=== PATIENT | female | born 1975 ===

== ENCOUNTER 2025-10-22 06:49 | Outpatient (CLI) | payer OTHER ==
[~2025-10-22 06:49] MED LIST: N
[2025-10-22 07:39] LABS: BASO % 0.6 % (0.1-1.2); EOS # 0.29 (0.04-0.54); EOS % 4.2 % (0.7-7.0); LYMPH # 1.95 (1.18-3.74); LYMPH % 28.5 % (19.3-53.1); MEAN PLATELET VOLUME 9.60 fl (9.4-12.4); MONO # 0.60 (0.24-0.82); MONO % 8.8 % (4.7-12.5); NEUT # 3.94 (1.56-6.13); NEUT % 57.6 % (34.0-71.1); RED CELL DISTRIBUTION WIDTH 13.5 % (11.6-14.4)
[2025-10-22 08:42] LABS: BUN CREA RATIO 30.0 (7.0-25.0); CREATININE SERUM 0.67 mg/dL (0.55-1.02); GFR 92.43; GLUCOSE FASTING 92.0 mg/dL (65-100); OSMOLALITY SERUM 291.0 MOSM/KG (275-295)
== END 2025-10-22 06:56 | disposition home or self-care (01) ==
LOC: LAB 06:49
DX: J45.20 Mild intermittent asthma, uncomplicated (principal); I70.0 Atherosclerosis of aorta; J30.9 Allergic rhinitis, unspecified